=== PATIENT | male | born 1980 | race Asian ===

== ENCOUNTER → 2016-12-27 | Day surgery (SDC) | payer OTHER ==
[~2016-12-27] VITALS: Ht 172.7 cm; Wt 71.6 kg
[~2016-12-27] MED LIST: BUPIVACAINE/EPINEPHRINE 0.5% PF 30 ML VIAL INFIL ONE; CHLORHEXIDINE GLUCONATE 2 % 1 PACK (2 CLOTHS) TOPICAL PRN; CYMB60CA PO; EMTR1TAB PO; INSULIN HUMAN REGULAR 1,000 UNITS/10 ML VIAL SQ PRN; LACTATED RINGER'S 1000 ML IV PRN; LIDOCAINE 1%/EPINEPHrine 1:100,000 SOLN 20 ML VIAL ONE; METOPROLOL TARTRATE 25 MG TAB PO PRN; MIDAZOLAM HCL 2 MG/2 ML VIAL ONE; POVIDONE IODINE 5% (ANTISEPSIS KIT) 4 APPLICATIONS EACH NARE PRN; PROPOFOL 200 MG/20 ML AMP IV ONE; SILVER SULFADIAZINE/LIDOCAINE CREAM 60 GM JAR RECTAL ONE; SODIUM CHLORID 0.9% 500 ML IV PRN
[2016-12-27 09:21] VITALS: BP 112/70; PULSE 81; RESP 16; TEMP 98.6; O2SAT 98
--- NOTE | 2016-12-27 09:30 | PD.HP.UP ---
H&P Update Note The Pre-Admit History and Physical Examination regarding the above named patient was reviewed (including, but not limited to, vital signs, heart, lungs, co-morbid conditions), and upon re-examination it is noted that: the patient's condition has not significantly changed since the last examination. Israel Denise MD Dec 27, 2016 09:29
[2016-12-27 09:59] LABS: AUTOMATED NEUTROPHIL # 2.2 TH/MM3 (1.8-7.7); BASOPHIL % 0.4 % (0.0-2.0); EOSINOPHIL # 0.1 TH/MM3 (0-0.4); EOSINOPHIL % 2.5 % (0.0-4.0); HEMATOCRIT 41.3 % (39.0-51.0); HEMO FLAGS DIFF FINAL; LYMPHOCYTE # 0.9 TH/MM3 (1.0-4.8); MEAN CELL VOLUME 86.7 FL (80.0-100.0); MEAN CORPUSCULAR HEMOGLOBIN 29.7 PG (27.0-34.0); MEAN CORPUSCULAR HGB CONC 34.3 % (32.0-36.0); MONO % 9.7 % (0.0-8.0); NEUT % 61.4 % (16.0-70.0); PLATELET COUNT 194 TH/MM3 (150-450); RED BLOOD COUNT 4.76 MIL/MM3 (4.50-5.90); RED CELL DISTRIBUTION WIDTH 12.9 % (11.6-17.2); WHITE BLOOD COUNT 3.5 TH/MM3 (4.0-11.0)
[2016-12-27 12:52] VITALS: BP 102/67; PULSE 68; RESP 18; TEMP 98; O2SAT 100
--- NOTE | 2016-12-28 13:25 | MP ---
cc: STEPHAN GERARD M.D. DATE OF SURGERY 12/27/2016 PREOPERATIVE DIAGNOSIS Possible anal condyloma. PROCEDURE Exam under anesthesia with excision of anal lesions possible condyloma. POSTOPERATIVE DIAGNOSIS Possible anal condyloma. SURGEON Dr. Gerard PROCEDURE The patient was placed in the left lateral decubitus position. After adequate anesthesia sedation, his buttocks were taped apart, prepped with Betadine solution and draped in usual sterile fashion. The anal canal was anesthetized by injection of 1% Xylocaine and 0.5% Marcaine with epinephrine. A half-floyd retractor inserted. Examination revealed fairly benign-appearing hemorrhoid tissue. There were several lesions throughout the anal canal that were suspicious for anal condyloma although not completely obvious. Biopsies of these were obtained and the bases fulgurated for hemostasis and further destruction of the lesions. There were several of these lesions throughout the circumference of the anal canal. The rectal vault appeared unremarkable. Hemorrhoid tissue was pretty small and non-prolapsing. After a complete excision and fulguration of well lesions, hemostasis appeared adequate. A large fluff dressing placed externally. The patient tolerated the procedure quite well and was brought to recovery room in stable condition. MD ERIKA Oleary/LESTER /9:48 PM /1:19 PM
== END | disposition home or self-care (01) ==
LOC: HSDC 08:25
PROVIDERS: ATTEND Colon & Rectal Surgery
DX: A63.0 Anogenital (venereal) warts (principal); R85.613 High grade squamous intraepithelial lesion on cytologic smear of anus (HGSIL); Z01.818 Encounter for other preprocedural examination
CPT/HCPCS: 00902; 46922; 85025; 88305; J2250; J3010; J7120; 88304